=== PATIENT | female | born 2000 | race Caucasian/White ===

== ENCOUNTER 2020-03-12 19:50 | Emergency (ER) | payer BC, SELFPAY ==
--- NOTE | ~2020-03-12 | XR_ITS ---
EXAMINATION: XR hip RT min 2V DATE: 03/12/2020 20:24 INDICATION: Intermittent right hip pain with popping and locking TECHNIQUE: Anteroposterior and cross-table lateral views of the right hip were obtained. COMPARISON: None. FINDINGS: Alignment is normal. No fracture. Joint spaces are normal. No suspected avascular necrosis. Soft tiss ues are unremarkable. IMPRESSION: 1. . Negative right hip radiographs. Reviewed, dictated and finalized at location [facility]
[2020-03-12 19:58] VITALS: BP 114/71; PULSE 114; RESP 18; TEMP 36.4; O2SAT 100
--- NOTE | 2020-03-12 20:46 | ED.GENADULT ---
HPI - General Adult General Chief complaint: Extremity Injury, Lower Stated complaint: right hip injury Time Seen by Provider: 03/12/20 20:10 Source: patient Mode of arrival: ambulatory Limitations: no limitations History of Present Illness HPI narrative: Patient is a 19-year-old female who presents with right hip pain was standing and twisted when she felt a pop in the right hip with moderate aching pain localized to the right hip made worse with activity and movement does not radiate denies similar occurrence in the past has not taken anything for her pain and otherwise presents in no distress lying in the bed comfortably Related Data Allergies Allergy/AdvReac Type Severity Reaction Status Date / Time No Known Allergies Allergy Unknown Uncoded 03/12/20 20:01 Review of Systems Review of Systems: All systems reviewed & are unremarkable except as noted in HPI and below PMFSH Family History Family History (Updated 01/25/19 @ 11:52 by DOCTOR UNKNOWN) Other Diabetes mellitus Family history of cardiovascular disease Family history of malignant neoplasm Hypertension Social History Social History Smoking status: Never smoker Alcohol intake: never Gender identity (if verbalized by the patient): Female Exam Narrative: Exam Narrative: GENERAL: Well-appearing, well-nourished, and in no acute distress. HEAD: Normocephalic, atraumatic. EYES: PERRLA and EOMI. ENT: Nares clear, no rhinorrhea or epistaxis. Mucous membranes moist. CHEST: Clear to auscultation. No respiratory distress. No wheezes rales or rhonchi HEART: Regular rate and rhythm. No murmur heard. EXTREMITIES: Normal range of motion. No edema. Tenderness of the right hip no deformities noted. No lumbar tenderness SKIN: Warm, dry, no rash. NEURO: No focal deficits. Alert and oriented x3. Neurovascularly intact. Cranial nerves II through XII grossly intact PSYCH: Normal mood and affect. Course Course Emergency Course: Patient with negative radiographs felt appropriate for discharge home agreeing to follow-up as directed provided with reasons to return no concerning findings in the imaging Vital Signs Vital signs: Vital Signs Temperature 97.5 F L 03/12/20 19:58 Pulse Rate 114 H 03/12/20 19:58 Respiratory Rate 18 03/12/20 19:58 Blood Pressure 114/71 03/12/20 19:58 Pulse Oximetry 100 03/12/20 19:58 Temperature 97.5 F L 03/12/20 19:58 Pulse Rate 114 H 03/12/20 19:58 Respiratory Rate 18 03/12/20 19:58 Blood Pressure 114/71 03/12/20 19:58 Pulse Oximetry 100 03/12/20 19:58 Medical Decision Making MDM Narrative Medical decision making narrative: Patients injury or pain is consistent with musculoskeletal etiology. No signs of neurological or vascular compromise on exam. Compartments and tisues are soft without signs of compartment syndrome. Pain is felt appropriate for further evaluation on an outpatient basis. Vital Signs Vital Signs: Vital Signs Temperature 97.5 F L 03/12/20 19:58 Pulse Rate 114 H 03/12/20 19:58 Respiratory Rate 18 03/12/20 19:58 Blood Pressure 114/71 03/12/20 19:58 Pulse Oximetry 100 03/12/20 19:58 Temperature 97.5 F L 03/12/20 19:58 Pulse Rate 114 H 03/12/20 19:58 Respiratory Rate 18 03/12/20 19:58 Blood Pressure 114/71 03/12/20 19:58 Pulse Oximetry 100 03/12/20 19:58 Discharge Plan Discharge Clinical Impression: Acute pain of right hip Patient Disposition: Home, Self-Care Condition: Stable Instructions: Hip Pain (ED) Additional Instructions: Limited weight on the affected leg until able to bear weight without pain. Ice and elevate extremity. Pain medication as needed and directed. Follow up with your doctor for further care in the next 7 days. Return if symptoms worsen or concerns or any increase in redness swelling pain or fever over 100.5 or any loss of feeling or function in the e
[2020-03-12] MEDS: IBUPROFEN 600 MG TABLET PO (20:51)
--- NOTE | 2020-03-12 20:54 | ED.GENADULT ---
HPI - General Adult General Chief complaint: Extremity Injury, Lower Stated complaint: right hip injury Time Seen by Provider: 03/12/20 20:10 Source: patient Mode of arrival: ambulatory Limitations: no limitations History of Present Illness HPI narrative: Patient is a 19-year-old female who presents to emergency department for evaluation of right hip pain twisted felt a pop in the hip has focal right hip pain denies radicular symptoms or paresthesias felt fine prior to the incident presents per private vehicle in no distress has not taken anything for symptom Related Data Allergies Allergy/AdvReac Type Severity Reaction Status Date / Time No Known Allergies Allergy Unknown Uncoded 03/12/20 20:01 Review of Systems Review of Systems: All systems reviewed & are unremarkable except as noted in HPI and below PMFSH Family History Family History (Updated 01/25/19 @ 11:52 by DOCTOR UNKNOWN) Other Diabetes mellitus Family history of cardiovascular disease Family history of malignant neoplasm Hypertension Social History Social History Smoking status: Never smoker Alcohol intake: never Gender identity (if verbalized by the patient): Female Exam Narrative: Exam Narrative: GENERAL: Well-appearing, well-nourished, and in no acute distress. HEAD: Normocephalic, atraumatic. EYES: PERRLA and EOMI. ENT: Nares clear, no rhinorrhea or epistaxis. Mucous membranes moist. CHEST: Clear to auscultation. No respiratory distress. No wheezes rales or rhonchi HEART: Regular rate and rhythm. No murmur heard. EXTREMITIES: Normal range of motion. No edema. Focal right hip pain no deformity. No lumbar tenderness SKIN: Warm, dry, no rash. NEURO: No focal deficits. Alert and oriented x3. Neurovascularly intact. Capillary refill less than 2 seconds PSYCH: Normal mood and affect. Course Course Emergency Course: Patient in the room in no distress aware of case findings treatment plan diagnosis Vital Signs Vital signs: Vital Signs Temperature 97.5 F L 03/12/20 19:58 Pulse Rate 114 H 03/12/20 19:58 Respiratory Rate 18 03/12/20 19:58 Blood Pressure 114/71 03/12/20 19:58 Pulse Oximetry 100 03/12/20 19:58 Temperature 97.5 F L 03/12/20 19:58 Pulse Rate 114 H 11/19/20 19:58 Respiratory Rate 18 03/12/20 19:58 Blood Pressure 114/71 03/12/20 19:58 Pulse Oximetry 100 03/12/20 19:58 Medical Decision Making MDM Narrative Medical decision making narrative: Patients injury or pain is consistent with musculoskeletal etiology. No signs of neurological or vascular compromise on exam. Compartments and tisues are soft without signs of compartment syndrome. Pain is felt appropriate for further evaluation on an outpatient basis. Vital Signs Vital Signs: Vital Signs Temperature 97.5 F L 03/12/20 19:58 Pulse Rate 114 H 03/12/20 19:58 Respiratory Rate 18 03/12/20 19:58 Blood Pressure 114/71 03/12/20 19:58 Pulse Oximetry 100 03/12/20 19:58 Temperature 97.5 F L 03/12/20 19:58 Pulse Rate 114 H 03/12/20 19:58 Respiratory Rate 18 03/12/20 19:58 Blood Pressure 114/71 03/12/20 19:58 Pulse Oximetry 100 03/12/20 19:58 Discharge Plan Discharge Clinical Impression: Acute pain of right hip Patient Disposition: Home, Self-Care Condition: Stable Instructions: Hip Pain (ED) Additional Instructions: Limited weight on the affected leg until able to bear weight without pain. Ice and elevate extremity. Pain medication as needed and directed. Follow up with your doctor for further care in the next 7 days. Return if symptoms worsen or concerns or any increase in redness swelling pain or fever over 100.5 or any loss of feeling or function in the extremity Prescriptions: New ibuprofen [IBU] 600 mg tablet 600 mg PO QID PRN (Reason: fever or pain) Qty: 7 RF: 0 cyclobenzaprine 5 mg tablet 5 mg PO TID PRN ([facility]
[2020-03-12 21:00] VITALS: BP 103/54; PULSE 102; RESP 15; O2SAT 100
== END 2020-03-12 21:00 | disposition home or self-care (01) ==
PROVIDERS: Emergency Provider Emergency Medicine; PCP Physician Assistant
DX: M25.551 Pain in right hip (principal)
CPT/HCPCS: 73502; 99283; A9270